=== PATIENT | male | born 1960 | race Caucasian/White ===

== ENCOUNTER → 2017-01-14 | Outpatient (CLI) | payer BC | LOC: RAD 12-28 09:00 | DX: R31.29 Other microscopic hematuria (principal); K80.20 Calculus of gallbladder without cholecystitis without obstruction; N28.1 Cyst of kidney, acquired | CPT/HCPCS: 74400; Q9962 ==

== ENCOUNTER 2021-10-06 09:49 | Emergency (ER) | payer BC ==
[2021-10-06 11:01] LABS: HEMOGLOBIN 16.4 gm/dl (14.0-17.5); RED BLOOD COUNT 5.03 M/UL (4.20-5.50); WHITE BLOOD COUNT 7.4 K/UL (4.5-11.0)
[2021-10-06 11:26] LABS: BUN/CREATININE RATIO 15 (0-10)
[2021-10-06] MEDS ORDERED: ZOFRAN ODT 4 MG4 MG PO (13:54)
== END 2021-10-06 14:25 | disposition home or self-care (01) ==
LOC: ER1 09:49
PROVIDERS: Family Medicine
DX: U07.1 COVID-19 (principal); I10 Essential (primary) hypertension; K21.9 Gastro-esophageal reflux disease without esophagitis; Z88.0 Allergy status to penicillin; F17.220 Nicotine dependence, chewing tobacco, uncomplicated
CPT/HCPCS: 71045; 80053; 81001; 82550; 82553; 83605; 83735; 83874; 83880; 84484; 85025; 86140; 93005; 99284; J7030; U0002